=== PATIENT | female | born 1980 | race African-American/Black ===

== ENCOUNTER 2020-10-18 22:18 | Emergency (ER) | payer OTHER ==
[~2020-10-18] VITALS: Ht 167.6 cm; Wt 72.6 kg
[2020-10-18 22:25] VITALS: BP 115/72
--- NOTE | 2020-10-18 22:25 | NUR ---
TO BED AMBULATORY
[2020-10-18] MEDS ORDERED: NACL 0.9% 1,000 ML IV ONE ×2 (22:45→23:10)
[2020-10-18] MEDS ORDERED: KETOROLAC 30 MG/ML VIAL IVP ONE (22:50)
--- NOTE | 2020-10-18 23:00 | NUR ---
RECEIVED A 40/F FROM TRIAGE WITH LOWER ABDOMINAL AND FLANK PAIN. PT REPORTS SHARP ACHING PAIN TO BILATERAL FLANK RADIATING TO LOWER ABDOMINAL REGION. RECENTLY POST-; DELIVERY SEP 19, 2020, PT DENIES ANY COMPLICATIONS AND DENIES VAGINAL BLEEDING. ATTACHED TO GI TECH NO DISTRESS NOTED.
[2020-10-18 23:02] LABS: APPEARANCE,URINE HAZY (CLEAR); BILIRUBIN,URINE NEGATIVE (NEGATIVE); BLOOD, URINE 3+ (NEGATIVE); COLOR,URINE YELLOW (YELLOW); LEUKOCYTE ESTERASE ,URINE 2+ (NEGATIVE); NITRITE, URINE POSITIVE (NEGATIVE); PH,URINE 5.5 (5.0-9.0); UGLUCOSE NEGATIVE (NEGATIVE)
[2020-10-18 23:08] LABS: BASOPHILS % (AUTO) 0.4 % (0.0-2.0); EOSINOPHILS # (AUTO) 0.1 K/uL (0-0.4); EOSINOPHILS % (AUTO) 0.7 % (0.0-4.0); HEMATOCRIT 40.9 % (36-48); HEMOGLOBIN 14.1 g/dL (12.0-16.0); LYMPHOCYTES % (AUTO) 9.3 % (20.5-51.1); MEAN CORPUSCULAR HEMOGLOBIN 32 pg (27-31); MEAN CORPUSCULAR HGB CONC 35 g/dL (33-37); MEAN CORPUSCULAR VOLUME 93.6 fL (80-94); MONOCYTES % (AUTO) 9.6 % (1.7-9.3); NEUTROPHILS # (AUTO) 8.5 K/uL (1.8-7.7); PLATELET COUNT (AUTO) 211 K/uL (140-450); RED BLOOD CELL COUNT(AUTO) 4.37 MIL/uL (4.20-5.40); RED CELL DISTRIBUTION WIDTH 12.4 % (11.6-13.7); WHITE BLOOD COUNT (AUTO) 10.6 K/uL (4.8-10.8)
[2020-10-18] MEDS ORDERED: cefTRIAXone 1,000 MG VIAL ONE (23:17)
[2020-10-18 23:23] LABS: ALBUMIN 3.4 g/dL (3.4-5.0); ANION GAP 14.7 (8-16); CARBON DIOXIDE 22.4 mmol/L (21-32); CREATININE 0.8 mg/dL (0.6-1.3); POTASSIUM 4.1 mmol/L (3.5-5.1); TOTAL BILIRUBIN 0.8 mg/dL (0.0-1.0)
[2020-10-18 23:24] LABS: WBC,URINE TOO MANY TO COUNT /HPF (0-5)
--- NOTE | 2020-10-18 23:51 | NUR ---
ACCESS DEVELOPER AT BEDSIDE.
[2020-10-19] MEDS ORDERED: ACETAMINOPHEN 325 MG TAB PO ONE ×2 (00:05→00:15)
[2020-10-19] MEDS ORDERED: ACETAMINOPHEN 325 MG TAB ONE (00:14)
--- NOTE | 2020-10-19 01:00 | NUR ---
AMBULATORY TO RESTROOM.
[2020-10-19] MEDS ORDERED: CEPH-588 PO (01:45)
[2020-10-19] MEDS ORDERED: ONDA-24 PO (01:45)
[2020-10-19] MEDS ORDERED: PHEN-1877 PO (01:45)
--- NOTE | 2020-10-19 01:52 | NUR ---
IV removed, catheter intact and site benign. Applied folded 4x4 gauze and tape to stop bleeding.
--- NOTE | 2020-10-19 01:53 | NUR ---
Patient discharged with v/s stable. Written and verbal after care instructions given and explained. Patient alert, oriented and verbalized understanding of instructions. Ambulatory with steady gait. All questions addressed prior to discharge. ID band removed. Patient advised to follow up with PMD. Rx of PYRDIUM, KEFLEX, AND ZOFRAN given. Patient educated on indication of medication including possible reaction and side effects. Opportunity to ask questions provided and answered.
[2020-10-19 01:54] VITALS: BP 110/53
== END 2020-10-19 01:50 | disposition home or self-care (01) ==
LOC: MED 22:18
DX: N12 Tubulo-interstitial nephritis, not specified as acute or chronic (principal)
CPT/HCPCS: 36415; 76856; 80053; 81001; 85025; 87086; 96365; 96375; 99284; J0696; J1885; J7030; Q0092